=== PATIENT | female | born 1985 | race Two or more races ===

== ENCOUNTER → 2025-04-25 | Outpatient (CLI) | payer MEDICAID, SELFPAY ==
--- NOTE | 2025-04-25 10:30 | XR_ITS ---
Examination: CT abdomen and pelvis without contrast. Coronal 3-D reconstructions. Sagittal 2-D reconstructions. Date and time of exam: April 25, 2025, 1103 hours INDICATIONS: Left lower quadrant abdominal pain pelvic pain beginning 3 years ago CTDI: vol (mGy): 9.33 DLP: (mGycm): 540 Technique: Axial images of the abdomen have been obtained, 3 mm slice thickness Intravenous contrast material has not been administered. Low dose protocols were performed. One or more of the following dose reduction techniques were used; automated exposure control, adjustment of the mA and/or KV according to patient size, use of iterative reconstruction technique. Findings: No focal liver or splenic lesions No gallstones No pancreatic or adrenal mass No renal or ureteral calculi, no hydronephrosis Aorta normal size Normal appendix No bowel obstruction 11 mm fat-containing umbilical hernia Anteverted uterus Urinary bladder intact Suspicious for 20 mm left ovarian follicular cyst Osseous structures intact IMPRESSION: No renal or ureteral calculi,. Normal appendix Consider pelvic sonography follow-up to exclude 20 mm left ovarian cyst
[2025-04-25 10:53] LABS: HCG Qualitative,Urine Negative
== END | disposition home or self-care (01) ==
PROVIDERS: PCP Physician Assistant; Referring Provider Surgery; Visit Provider Surgery
DX: R10.32 Left lower quadrant pain (principal); Z32.00 Encounter for pregnancy test, result unknown
CPT/HCPCS: 74176; 81025